=== PATIENT | female | born 1955 | race Two or more races ===

== ENCOUNTER 2016-09-25 09:20 | Day surgery (SDC) | payer OTHER ==
[~2016-09-25] VITALS: Ht 152.4 cm; Wt 80.2 kg
[2016-09-25 10:40] VITALS: Ht 152.4 cm; Wt 80.2 kg
[2016-09-25] MEDS ORDERED: MIDAZOLAM 1 MG/ML 2 ML INJ ONE (10:54)
[2016-09-25] MEDS ORDERED: PROPOFOL 40 ML ONE (10:54)
[2016-09-25] MEDS ORDERED: LIDOCAINE 2% (SDV) 5 ML INJ ONE (10:54)
[2016-09-25] MEDS ORDERED: AMLO1CAP15 PO (10:58)
[2016-09-25] MEDS ORDERED: LEVO50TA74 PO (11:00)
[2016-09-25] MEDS ORDERED: METO25TA7 PO (11:00)
[2016-09-25] MEDS ORDERED: LOVA20TA PO (11:00)
[2016-09-25] MEDS ORDERED: SITA25TA3 PO (11:00)
[2016-09-25] MEDS ORDERED: TRAZ50TA18 PO (11:00)
[2016-09-25] MEDS ORDERED: GABA300C16 PO (11:00)
[2016-09-25] MEDS ORDERED: VALS80TA2 PO (11:00)
[2016-09-25] MEDS ORDERED: CHOL100062 PO (11:00)
[2016-09-25 11:03] VITALS: BP 185/87; PULSE 58; RESP 10
[2016-09-25] MEDS ORDERED: METOPROLOL 5 MG INJ ONE (11:14)
[2016-09-25 11:59] VITALS: BP 168/81; RESP 20
--- NOTE | 2016-09-25 17:12 | GILP ---
DATE OF PROCEDURE: PROCEDURE PERFORMED: Esophagogastroduodenoscopy with biopsy, and colonoscopy. INDICATION: A 61-year-old female undergoing this procedure for chronic heartburn, and colonoscopy f or colon cancer screening. INFORMED CONSENT: The risk of the procedure, related and unrelated complications, anesthetic risks, alternatives discussed and informed consent was obtained. DESCRIPTION OF PROCEDURE: The patient was brought to the GI lab, sedated by Dr. Donaldson. After optima l sedation, scope was passed with much ease into esophagus. Z line was at 35 cm. The patient had a n esophageal ring, Schatzki ring, nonobstructing. She also had a 4 to 5 cm hiatal hernia. Stomach mucosa revealed gastritis. Multiple biopsies obtained. Duodenum, first and second part appeared no rmal. Retroversion confirmed the hiatal hernia. Scope was straightened out and removed with good p atient tolerance. IMPRESSION 1. Normal esophagus. 2. Z line regular at 35 cm. 3. Schatzki's ring, nonobstructing, wide open. 4. A 4 to 5 cm hiatal hernia. 5. Gastritis. 6. Normal duodenum. PLAN: Review histopathology. COLONOSCOPY: The patient was turned around, scope was passed with much ease into rectum, advanced t hrough sigmoid, descending, and transverse colon all the way into the cecum. Appendiceal orifice id entified. IC valve identified. While coming out, mucosa thoroughly inspected. The rest of the col on was normal, a few spiculated diverticula seen in the left side of the colon. Retroversion was no t possible because of small rectum, small hemorrhoids identified. IMPRESSION: 1. Hemorrhoids. 2. Normal all the way into cecum. 3. Diverticulosis. 4. Clarity was good and cleanliness was good to adequate. PLAN: Stay on high fiber diet. Dictated By: DIONTE IRAHETA/GASTON Conf#: [id number] DID#: [id number] CC: MADELINE HCEN;*EndCC*
== END 2016-09-26 08:36 | disposition home or self-care (01) ==
LOC: GIL 09:20
PROVIDERS: ATTEND Internal Medicine Gastroenterology
DX: Z12.11 Encounter for screening for malignant neoplasm of colon (principal); K22.2 Esophageal obstruction; K29.70 Gastritis, unspecified, without bleeding; K64.9 Unspecified hemorrhoids; K57.90 Diverticulosis of intestine, part unspecified, without perforation or abscess without bleeding; E11.9 Type 2 diabetes mellitus without complications; I10 Essential (primary) hypertension; E03.9 Hypothyroidism, unspecified; E66.9 Obesity, unspecified; Z68.34 Body mass index [BMI] 34.0-34.9, adult
CPT/HCPCS: 43239; 45378; 82962; 88305; 88312; J2250; Z7610